=== PATIENT | female | born 1935 | race Caucasian/White ===

== ENCOUNTER → 2017-05-05 | Outpatient (CLI) | payer MEDICARE ==
--- NOTE | 2017-05-05 12:21 | XR ---
EXAMINATION TYPE: XR chest 2V DATE OF EXAM: 05/05/2017 COMPARISON: NONE INDICATION: Chest pain presurgical clearance TECHNIQUE: Frontal and lateral views of the chest are obtained. FINDINGS: The heart size is normal. The pulmonary vasculature is normal. The lungs are clear. There is hyperinflation with an increased retrosternal airspace and flattening the diaphragms compatible COPD. Surgical clips are in the right axillary region. IMPRESSION: 1. COPD. 2. No acute pulmonary process.
== END | disposition home or self-care (01) ==
LOC: RADNMMAIN 10:50
PROVIDERS: ATTEND Internal Medicine
DX: Z01.810 Encounter for preprocedural cardiovascular examination (principal); J44.9 Chronic obstructive pulmonary disease, unspecified; I10 Essential (primary) hypertension
CPT/HCPCS: 71046

== ENCOUNTER → 2017-05-07 | Outpatient (CLI) | payer MEDICARE ==
[~2017-05-07] MED LIST: REGADENOSON 0.4 MG/5 ML SYRINGE IV ONE
--- NOTE | 2017-05-07 13:15 | NM ---
EXAMINATION TYPE: NM stress lexiscan cardiolite DATE OF EXAM: 05/07/2017 COMPARISON: NONE HISTORY: Chest pain TECHNIQUE: After the intravenous administration of 10.7 mCi Tc 99m Sestamibi - Cardiolite resting SP ECT images acquired 45 minutes post injection. The patient received 0.4mg Lexiscan, 26.8 mCi Tc 99m Sestamibi - Stress images obtained [address] injection FINDINGS: Review of stress and rest SPECT images demonstrates no reversible perfusion abnormality. Fixed defec ts are seen within the distribution of the left anterior descending coronary artery and circumflex co ronary arteries in the anteroseptal wall and inferolateral wall respectively. These are moderate in d egree and approximately 2 segment each. There is an estimated left ventricular ejection fraction of 2 6 %. TID calculi within normal limits at 0.92. IMPRESSION: 1. No scintigraphic evidence for reversible ischemia. 2. Fixed defects representing infarcts in the distribution of the left anterior descending and circum flex coronary arteries. 3. Abnormal estimated left ventricular ejection fraction of 26%.
--- NOTE | 2017-05-11 13:35 | EST ---
- Stress Test Note Stress Test Results/Findings: Exam Performed: NM stress lexiscan cardiolite Exam Date: 05/07/17 Reason for Exam: PRE-SURGICAL CHEST PAIN Height: 4 ft 11 in Weight: 64.864 kg Protocol: LEXISCAN CARDIOLITE Stage: Duration of Exercise: 6:00 Resting Heart Rate: 74 Resting Blood Pressure: 149/86 Maximum Achieved Heart Rate: 95 Maximum Achieved Blood Pressure: 152/75 85% PMHR: 116 100% PMHR: 137 METS: Technologist Comment: Stress Test Results/Findings: This is a 81-year-old female with history of hypertension, CVA being evaluated for symptoms of chest pain. Baseline EKG showed sinus rhythm with evidence of left bundle branch block pattern. Blood pressure at rest is 149/86 with pulse rate of 74. History and dose of Lexiscan was infused. EKGs continued to show left bundle-branch block pattern. Final impression #1. Lately scan stress test umber 2. Report on the nuclear images to begin by the radiologist. YAS
== END | disposition home or self-care (01) ==
LOC: RADNMMAIN 08:43
PROVIDERS: ATTEND Internal Medicine
DX: Z01.810 Encounter for preprocedural cardiovascular examination (principal); R07.9 Chest pain, unspecified
CPT/HCPCS: 93017; 78452; A9500; J2785

== ENCOUNTER → 2017-05-19 | Outpatient (CLI) | payer MEDICARE ==
[2017-05-19 13:36] LABS: HCT 39.3 % (34.0-46.0); MCH 28.9 pg (25.0-35.0); MCV 87.8 fL (80.0-100.0); Mean Platelet Volume 6.6; Platelet Count 336 k/uL (150-450); RBC 4.48 m/uL (3.80-5.40); RDW 13.4 % (11.5-15.5)
[2017-05-19 13:53] LABS: Potassium 5.2 mmol/L (3.5-5.1)
== END | disposition home or self-care (01) ==
LOC: LABPAT 13:02
PROVIDERS: ATTEND Internal Medicine Interventional Cardiology
DX: Z01.812 Encounter for preprocedural laboratory examination (principal); R94.30 Abnormal result of cardiovascular function study, unspecified
CPT/HCPCS: 36415; 80051; 82565; 84520; 85027

== ENCOUNTER 2017-05-26 06:36 | Day surgery (SDC) | payer MEDICARE ==
[2017-05-21 10:39] VITALS: BMI 27.7
[2017-05-26] MEDS ORDERED: ALPRAZolam 0.25 MG TAB PO PRN (06:37)
[2017-05-26] MEDS ORDERED: ASPIRIN 325 MG TAB PO STA (06:37)
[2017-05-26] MEDS ORDERED: ALPRAZolam 0.5 MG TAB PO PRN (06:37)
[2017-05-26] MEDS ORDERED: NITROGLYCERIN SL TABS 0.4 MG TAB SUBLINGUAL PRN (06:37)
[2017-05-26] MEDS ORDERED: SODIUM CHLORIDE 0.9% 1,000 ML in EMPTY BAG 1 BAG IV ONE (06:37)
[2017-05-26] MEDS ORDERED: ATORVASTATIN 80 MG TAB PO STA (06:37)
[2017-05-26] MEDS ORDERED: LIDOCAINE 2% INJ 20 MG/ML (20 ML MDV) ONE (07:15)
[2017-05-26] MEDS ORDERED: VERAPAMIL 2.5 MG/ML 2 ML AMP ONE (07:16)
[2017-05-26] MEDS ORDERED: fentaNYL (PF) 50 MCG/ML 2 ML AMP ONE (07:26)
[2017-05-26 07:36] VITALS: RESP 20; TEMP 97.9
[2017-05-26] MEDS ORDERED: fentaNYL (PF) 50 MCG/ML 2 ML AMP IV ONE (07:41)
[2017-05-26] MEDS ORDERED: LIDOCAINE 2% INJ 20 MG/ML SQ ONE (07:41)
[2017-05-26] MEDS ORDERED: VERAPAMIL SYRINGE (5 MG/10 ML) INTRAARTER ONE (07:43)
[2017-05-26] MEDS ORDERED: SODIUM CHLORIDE 0.9% 1,000 ML IV ONE (07:43)
[2017-05-26] MEDS ORDERED: HEPARIN SODIUM 1,000 UN/ML (10ML VL) ONE (07:52)
[2017-05-26] MEDS ORDERED: HEPARIN SODIUM 1,000 UN/ML (10ML VL) IV ONE (07:54)
[2017-05-26] MEDS ORDERED: IOPAMIDOL-370 125ML BTL INJ ONE (08:00)
[2017-05-26] MEDS ORDERED: RX INFO: IV CONTRAST WAS GIVEN 1 EACH MISC MISCELLANE PRN (08:15)
[2017-05-26] MEDS ORDERED: SODIUM CHLORIDE 0.9% 1,000 ML IV SCH (08:15)
[2017-05-26] MEDS ORDERED: METOPROLOL TARTRATE 25 MG TAB PO SCH (09:00)
[2017-05-26] MEDS ORDERED: LISINOPRIL 5 MG TAB PO SCH (09:00)
--- NOTE | 2017-05-26 09:03 | CC ---
CARDIAC CATHETERIZATION REPORT Mrs. Washburn is an 81-year-old female with known history of hypertension, left bundle branch block of unknown duration, who is scheduled to undergo hip surgery and was found to have an abnormal myocardial perfusion imaging with fixed anteroseptal and inferolateral wall defect with impaired systolic function. In view of that, recommendation was made regarding cardiac catheterization. The procedure as well as the risks and the complications were discussed with the patient who is in full understanding and agreement. PROCEDURE: Patient was brought to the laborer drying department in the fasting semi-sedated state after receiving fentanyl and Benadryl and achieving moderate conscious sedated state. Using Xylocaine anesthesia in the Seldinger technique, a 6-Vincentian sheath was introduced in the right radial artery. Selective right and left angiography was performed using 3.5 bend, 5- Vincentian right and left Cooper catheter and multiple views of the coronary artery including hemiaxial views were obtained. Following that catheter and sheath were removed. Hemostasis was obtained with deployed of a TR band. There was no immediate complication. Patient was returned to her room in stable condition. Of note, the patient received 3500 units of intravenous heparin as well as intra-arterial verapamil. FINDINGS: FLUOROSCOPY: There was severe calcification involving all the coronary arteries. LEFT MAIN: This is a large-size vessel bifurcating into left circumflex and left anterior descending artery. Left main coronary artery has no evidence of high-grade stenosis. LEFT ANTERIOR DESCENDING ARTERY: This is a large-sized vessel reaching toward the apex with a wraparound apex segment giving rise to a moderately sized diagonal branch proximally. Prior to the takeoff of the diagonal branch and at the takeoff, there is a plaque of about 30% calcified. The first diagonal branch is small in caliber, but has an area of about 80% stenosis in the mid segment. The rest of the vessel has no high- grade stenosis. LEFT CIRCUMFLEX: This is a nondominant vessel giving rise to 2 obtuse marginal branches. The first obtuse marginal branch is large in caliber and has intimal disease of 20% to 30%. The second obtuse marginal branch is subtotally occluded with minimal antegrade flow. The vessel appears to be small in caliber. RIGHT CORONARY ARTERY: This is a large dominant vessel bifurcating distally PDA and posterolateral segment and branches. The mid right coronary artery is calcified and has intimal disease of 20% to 30%. LEFT VENTRICULOGRAM: The left ventriculogram was not performed. CONCLUSION: 1. Calcified coronary arteries. 2. 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 3. Mild disease in the left anterior descending artery and right coronary artery. RECOMMENDATION: In view of finding anatomy, recommend to continue medical therapy with aggressive coronary risk modification that has been initiated. Depending on progress, further recommendation will be made. Those findings and recommendation were discussed with the patient and her family and they are in full understanding and agreement. DURATION OF PROCEDURE: 25 minutes. MMODL / IJN: [id number] /
[2017-05-26 12:48] VITALS: BP 142/65; PULSE 72
[2017-05-27] MEDS ORDERED: ASPIRIN 81 MG PO SCH (09:00)
[2017-05-27] MEDS ORDERED: ATORVASTATIN 20 MG TAB PO SCH (09:00)
== END 2017-05-26 13:15 | disposition home or self-care (01) ==
LOC: CATHCVL 06:36
PROVIDERS: ATTEND Internal Medicine Interventional Cardiology
DX: I25.10 Atherosclerotic heart disease of native coronary artery without angina pectoris (principal); I25.84 Coronary atherosclerosis due to calcified coronary lesion; I25.82 Chronic total occlusion of coronary artery; I25.5 Ischemic cardiomyopathy; I10 Essential (primary) hypertension; M19.90 Unspecified osteoarthritis, unspecified site; Z85.3 Personal history of malignant neoplasm of breast; Z79.82 Long term (current) use of aspirin; Z79.899 Other long term (current) drug therapy
CPT/HCPCS: 93454; C1894; C1769 ×2; J2001; J3010; J1644; Q9967